=== PATIENT | male | born 1950 | race Caucasian/White ===

== ENCOUNTER 2017-05-31 17:46 | Emergency (ER) | payer OTHER ==
[~2017-05-31] VITALS: Ht 175.3 cm; Wt 70.0 kg
[~2017-05-31 17:46] MED LIST: ALLO100T30 PO; AMLO10TA2 PO; ENAL20TA PO; GLIP5TAB22 PO; LEVE250T5 PO; METO50TA82 PO
[2017-05-31] MEDS ORDERED: SODIUM CHLORIDE FLUSH 10ML SYR IVF ONE (19:00)
[2017-05-31] MEDS ORDERED: SODIUM CHLORIDE 0.9% 1,000ML IVBOLUS ONE (19:00)
[2017-05-31 19:15] LABS: ALANINE AMINOTRANSFERASE 19 U/L (12-78); ALBUMIN 3.3 g/dL (3.4-5.0); ANION GAP 8 mmol/L (5-15); CALCIUM 8.3 mg/dL (8.5-10.1); CHLORIDE 100 mmol/L (98-107); CREATININE 1.31 mg/dL (0.7-1.3)
[2017-05-31 19:19] LABS: ALKALINE PHOSPHATASE 74 U/L (45-117); BILIRUBIN,TOTAL 0.5 mg/dL (0.2-1.0); TOTAL PROTEIN 7.1 g/dL (6.4-8.2); TROPONIN I 0.023 ng/mL (0.000-0.045)
[2017-05-31 19:20] LABS: MD YES; MEAN CORPUSCULAR HEMOGLOBIN 31.9 pg (27.5-34.5); MEAN CORPUSCULAR HGB CONC 34.2 g/dL (33.2-36.2); MEAN CORPUSCULAR VOLUME 93.2 fL (81-97); PLATELET COUNT 182 x10^3/uL (130-400); RED CELL DISTRIBUTION WIDTH 15.1 % (9.4-14.8)
[2017-05-31 19:34] VITALS: BP 156/78
[2017-05-31 19:50] LABS: <RBC MORPHOLOGY> NORMAL; BAND#(MANUAL) 0.15 x10^3/uL; BANDS%(MANUAL) 3 % (0-7); EOS#(MANUAL) 0.29 x10^3/uL (0.0-0.4); EOS% (MANUAL) 6 % (1-7); LYMPH#(MANUAL) 1.13 x10^3/uL (1-3.4); LYMPHS% (MANUAL) 23 % (22-44); MONOS#(MANUAL) 0.88 x10^3/uL (0.3-2.7); MONOS% (MANUAL) 18 % (2-9); SEG#(MANUAL) 2.45 x10^3/uL (1.8-6.8); SEGS% (MANUAL) 50 % (42-75)
[2017-05-31 19:51] LABS: <PLATELET ESTIMATE> ADEQUATE; <PLT MORPHOLOGY> NORMAL PLT MORPH
== END 2017-05-31 20:25 | disposition home or self-care (01) ==
LOC: ED 19:00
DX: E11.65 Type 2 diabetes mellitus with hyperglycemia (principal); B34.9 Viral infection, unspecified; I10 Essential (primary) hypertension; Z79.4 Long term (current) use of insulin
CPT/HCPCS: 36415; 80053; 83605; 84484; 85025; 93005; 96360; 99285; J7030

== ENCOUNTER 2017-11-02 16:31 | Inpatient (IN) | payer OTHER ==
[~2017-11-02] VITALS: Ht 175.3 cm; Wt 76.9 kg
[2017-11-02 17:09] LABS: PH, VENOUS 7.401 pH (7.320-7.420)
[2017-11-02 17:19] LABS: ACETONE, SERUM Negative (Negative); BASOPHILS # (AUTO) 0.03 x10^3/uL (0-0.1); BASOPHILS % (AUTO) 0 % (0-1); EOSINOPHILS # (AUTO) 0.12 x10^3/uL (0-0.4); EOSINOPHILS % (AUTO) 2 % (1-7); LYMPHOCYTES # (AUTO) 1.72 x10^3/uL (1-3.4); LYMPHOCYTES % (AUTO) 24 % (22-44); MD NO; MEAN CORPUSCULAR HEMOGLOBIN 32.5 pg (27.5-34.5); MEAN CORPUSCULAR HGB CONC 34.5 g/dL (33.2-36.2); MEAN CORPUSCULAR VOLUME 94.3 fL (81-97); MEAN PLATELET VOLUME 8.2 fL (7.4-10.4); MONOCYTES % (AUTO) 14 % (2-9); NEUTROPHILS # (AUTO) 4.29 x10^3/uL (1.8-6.8); NEUTROPHILS % (AUTO) 60 % (42-75); PLATELET COUNT 201 x10^3/uL (130-400); RED BLOOD COUNT 4.58 x10^6/uL (4.38-5.82); RED CELL DISTRIBUTION WIDTH 15.2 % (9.4-14.8)
[2017-11-02 17:20] LABS: INTERNATIONAL NORMALIZED RATIO 0.99 (0.93-1.1); PROTHROMBIN TIME 10.2 Seconds (9.6-11.5)
[2017-11-02 17:23] LABS: ALBUMIN 3.6 g/dL (3.4-5.0); ANION GAP 9 mmol/L (5-15); CALCIUM 8.1 mg/dL (8.5-10.1); CHLORIDE 98 mmol/L (98-107)
[2017-11-02 17:29] LABS: MICROSCOPIC NOT IND
[2017-11-02 17:29] LABS: ALANINE AMINOTRANSFERASE 22 U/L (12-78); ALKALINE PHOSPHATASE 76 U/L (45-117); CREATININE 1.51 mg/dL (0.7-1.3); TOTAL PROTEIN 7.7 g/dL (6.4-8.2); TROPONIN I < 0.015 ng/mL (0.000-0.045)
[2017-11-02 17:35] LABS: CULTURE INDICATED? NO
[2017-11-02] MEDS ORDERED: hydrALAzine 20 MG/ML, 1ML IVPush PRN (19:30)
[2017-11-02] MEDS ORDERED: NS + 20MEQ KCL 1,000 ML IV SCH (20:00)
[2017-11-02] MEDS ORDERED: OMNIPAQUE 350 MG/ML, 100ML BOTTLE ONE (20:18)
[2017-11-02 20:59] VITALS: BP 151/90
[2017-11-02] MEDS: HEPARIN 5,000 UNITS/ML, 1ML SQ SCH (21:02)
[2017-11-02] MEDS: INSULIN LISPRO 100 UNITS/ML, PEN SQ-INSULIN SCH (21:48)
[2017-11-02] MEDS: ACETAMINOPHEN 325 MG TABLET PO PRN (22:10)
[2017-11-02 22:27] LABS: TROPONIN I < 0.015 ng/mL (0.000-0.045)
[2017-11-03 02:00] VITALS: BP 126/74
[2017-11-03 04:51] LABS: TROPONIN I < 0.015 ng/mL (0.000-0.045)
[2017-11-03] MEDS: HEPARIN 5,000 UNITS/ML, 1ML SQ SCH ×3 (05:35→21:13)
[2017-11-03 06:51] LABS: ALBUMIN 2.9 g/dL (3.4-5.0); ANION GAP 9 mmol/L (5-15); CALCIUM 8.5 mg/dL (8.5-10.1); CHLORIDE 104 mmol/L (98-107); CREATININE 1.36 mg/dL (0.7-1.3)
[2017-11-03] MEDS: METOPROLOL TARTRATE 50 MG TABLET PO SCH (07:56)
[2017-11-03] MEDS: ALLOPURINOL 100 MG TABLET PO SCH (07:56)
[2017-11-03] MEDS: AMLODIPINE 5 MG TABLET PO SCH (07:56)
[2017-11-03] MEDS: ENALAPRIL 20MG TABLET PO SCH (07:56)
[2017-11-03] MEDS: INSULIN LISPRO 100 UNITS/ML, PEN SQ-INSULIN SCH ×4 (07:57→21:00)
[2017-11-03 08:40] VITALS: BP 149/92
[2017-11-03] MEDS ORDERED: KETOROLAC 30 MG/1 ML IVPush ONE (09:30)
[2017-11-03 12:28] VITALS: BP 124/72
[2017-11-03] MEDS: ACETAMINOPHEN 325 MG TABLET PO PRN (16:08)
[2017-11-03 18:41] VITALS: BP 125/74
[2017-11-03] MEDS: IBUPROFEN 200 MG TABLET PO PRN (22:35)
[2017-11-04 01:54] VITALS: BP 127/76
[2017-11-04] MEDS: HEPARIN 5,000 UNITS/ML, 1ML SQ SCH ×3 (05:01→21:11)
[2017-11-04] MEDS: ACETAMINOPHEN 325 MG TABLET PO PRN ×2 (05:04→21:11)
[2017-11-04 08:05] VITALS: BP 139/77
[2017-11-04] MEDS: INSULIN LISPRO 100 UNITS/ML, PEN SQ-INSULIN SCH ×4 (08:45→21:12)
[2017-11-04] MEDS: AMLODIPINE 5 MG TABLET PO SCH (08:46)
[2017-11-04] MEDS: ENALAPRIL 20MG TABLET PO SCH (08:46)
[2017-11-04] MEDS: METOPROLOL TARTRATE 50 MG TABLET PO SCH (08:46)
[2017-11-04] MEDS: ALLOPURINOL 100 MG TABLET PO SCH (08:46)
[2017-11-04] MEDS: IBUPROFEN 200 MG TABLET PO PRN (08:52)
[2017-11-04 13:51] VITALS: BP 146/68
[2017-11-04] MEDS ORDERED: FUROSEMIDE 20 MG/2 ML IV ONE (15:00)
[2017-11-04 20:08] VITALS: BP 168/85
[2017-11-05 04:11] VITALS: BP 144/81
[2017-11-05] MEDS: HEPARIN 5,000 UNITS/ML, 1ML SQ SCH ×3 (05:09→21:16)
[2017-11-05 06:09] LABS: CHLORIDE 99 mmol/L (98-107)
[2017-11-05 06:47] VITALS: BP 155/84
[2017-11-05 06:56] LABS: ANION GAP 12 mmol/L (5-15); CALCIUM 8.8 mg/dL (8.5-10.1); CREATININE 1.39 mg/dL (0.7-1.3)
[2017-11-05] MEDS: ALLOPURINOL 100 MG TABLET PO SCH (08:53)
[2017-11-05] MEDS: INSULIN LISPRO 100 UNITS/ML, PEN SQ-INSULIN SCH ×4 (08:53→21:15)
[2017-11-05] MEDS ORDERED: REGADENOSON 0.4 MG/5 ML SYRINGE ONE (09:29)
[2017-11-05] MEDS: METOPROLOL SUCCINATE 50 MG TAB.ER.24H PO SCH (11:09)
[2017-11-05] MEDS: AMLODIPINE 5 MG TABLET PO SCH (11:09)
[2017-11-05 11:10] VITALS: BP 149/88
[2017-11-05] MEDS: ENALAPRIL 20MG TABLET PO SCH (11:13)
[2017-11-05 14:23] VITALS: BP 120/73
[2017-11-05 20:52] VITALS: BP 143/84
[2017-11-06 01:08] VITALS: BP 131/76
[2017-11-06] MEDS: HEPARIN 5,000 UNITS/ML, 1ML SQ SCH ×2 (06:08→12:30)
[2017-11-06] MEDS: METOPROLOL SUCCINATE 50 MG TAB.ER.24H PO SCH (06:08)
[2017-11-06] MEDS: INSULIN LISPRO 100 UNITS/ML, PEN SQ-INSULIN SCH ×2 (07:00→12:02)
[2017-11-06 07:36] VITALS: BP 116/74
[2017-11-06] MEDS: ALLOPURINOL 100 MG TABLET PO SCH (09:18)
[2017-11-06] MEDS: AMLODIPINE 5 MG TABLET PO SCH (09:18)
[2017-11-06] MEDS: ENALAPRIL 20MG TABLET PO SCH (09:18)
[2017-11-06] MEDS ORDERED: IBUP-1221 PO (13:52)
[2017-11-06 13:57] VITALS: BP 144/81
== END 2017-11-06 15:05 | disposition home or self-care (01) | DRG 682 ==
LOC: ED 18:48 → EDIP 19:08 → 3NE 19:10 → 4WST 20:00 → 4EST 11-06 07:17 → DCLOUNGE 11-06 14:55
PROVIDERS: ADMIT Internal Medicine; ATTEND Hospitalist
PROC: 0R9M3ZZ Drainage of Left Elbow Joint, Percutaneous Approach (ICD-10-PCS; principal; 2017-11-04)
DX: N17.0 Acute kidney failure with tubular necrosis (principal); I50.33 Acute on chronic diastolic (congestive) heart failure; E87.1 Hypo-osmolality and hyponatremia; I11.0 Hypertensive heart disease with heart failure; E11.65 Type 2 diabetes mellitus with hyperglycemia; E78.00 Pure hypercholesterolemia, unspecified; E78.5 Hyperlipidemia, unspecified; E87.6 Hypokalemia; M19.90 Unspecified osteoarthritis, unspecified site; M10.9 Gout, unspecified; M77.9 Enthesopathy, unspecified; N18.9 Chronic kidney disease, unspecified; Z66 Do not resuscitate; Z79.4 Long term (current) use of insulin; Z91.14 Patient's other noncompliance with medication regimen; Z91.19 Patient's noncompliance with other medical treatment and regimen; M25.422 Effusion, left elbow
CPT/HCPCS: 20606; 36415; 71045; 71275; 78452; 80048; 80053; 81003; 82010; 82040; 82803; 82962; 83690; 83735; 83880; 84100; 84484; 85025; 85379; 85610; 85730; 85810; 87070; 87075; 87205; 88112; 89050; 89060; 93005; 93017; 93306; 93970; 99285; J1644; J1885; J2785; J3480; Q9967; A9502; C9898; J1940